=== PATIENT | male | born 1965 | race Caucasian/White ===

== ENCOUNTER → 2024-12-29 | Emergency (ER) | payer OTHER ==
[~2024-12-29] VITALS: Ht 160 cm; Wt 122.7 kg
[~2024-12-29] MED LIST: ALBU18HF12 IH; DICL100G60 TP; IBUP-1492 PO; METH-659 PO; PANT-31 PO
[2024-12-29 15:33] VITALS: BP 118/65; PULSE 88; RESP 18; TEMP 97.9; O2SAT 96
[2024-12-29] MEDS: ACETAMINOPHEN 500 MG TABLET PO ONE (17:11)
[2024-12-29] MEDS: IBUPROFEN 600 MG TABLET PO ONE (17:11)
== END | disposition still patient (30) ==
LOC: EMS 15:13
DX: M25.511 Pain in right shoulder (principal); M54.2 Cervicalgia; M54.50 Low back pain, unspecified; E78.00 Pure hypercholesterolemia, unspecified; I10 Essential (primary) hypertension; F17.210 Nicotine dependence, cigarettes, uncomplicated; Z79.899 Other long term (current) drug therapy; V49.9XXA Car occupant (driver) (passenger) injured in unspecified traffic accident, initial encounter; Y93.89 Activity, other specified; Y92.410 Unspecified street and highway as the place of occurrence of the external cause; Y99.8 Other external cause status
CPT/HCPCS: 72040; 72070; 72100; 99284; 73030-TC; Z7502; Z7610